=== PATIENT | male | born 1975 | race Caucasian/White ===

== ENCOUNTER 2017-12-19 09:58 | Inpatient (IN) | payer MEDICAID ==
--- NOTE | 2017-12-19 10:34 | CR ---
EXAMINATION: Two-view chest (PA and Lateral views). HISTORY: Shortness of breath. Comparison: 12/18/2017 FINDINGS: The trachea is midline. The cardiomediastinal silhouette is within normal limits. There is a left-ramon ed pneumothorax measuring 2.9 cm at the apex, not significantly changed from the recent radiograph. M ild left basilar atelectasis. No pleural effusion. Osseous structures appear unremarkable. IMPRESSION: 1. Stable small to moderate left pneumothorax.
[2017-12-19] MEDS ORDERED: Sodium Chloride 0.9% 2.5 ML Syringe FLUSH PRN (10:39)
[2017-12-19] MEDS ORDERED: Sodium Chloride 0.9% 10 ML Syringe FLUSH PRN (10:39)
[2017-12-19] MEDS ORDERED: Lidocaine 1% 20 ML MDV INJECT ONE (10:45)
--- NOTE | 2017-12-19 10:56 | EDM.PDOC ---
ED HPI GENERAL MEDICAL PROBLEM - General Chief Complaint: Respiratory Problem Stated Complaint: COLLASPED LUNG PER MD SOTO Time Seen by Provider: 12/19/17 10:24 Source of Information: Reports: Patient, Family () - History of Present Illness INITIAL COMMENTS - FREE TEXT/NARRATIVE: Presents reporting a pneumothorax. The patient states he does not ever seek medical care. He was seen in the urgent care for his gout a month ago. He also reported some SOB with activity so they did a chest X-ray which indicated a 25% pneumo. He was told to FU but he did not. Then yesterday, his went in to primary care and while she was there, urged her to be seen to FU with the pneumo. Dr. Soto did a CXR which indicated explanding pneumo from his previous x-ray in mid October and told him to report to the ER this morning. He had a spontaneous pneumothorax on the right when he was 15 years old. It was treated with a chest tube without interval recurrence per the patient. The patient states that he is always a little short of breath when going up stairs or exerting himself but otherwise denies any symptoms. He states that he has some mild pain from his scapula down to his belt line on the left in the back that increases with movement and laying on his left side but otherwise he denies any pain. Left Chest Pain Score (Numeric/FACES): 4 - Related Data Allergies Allergy/AdvReac Type Severity Reaction Status Date / Time No Known Allergies Allergy Verified 12/19/17 10:13 Home Meds: Home Meds . [No Known Home Meds] 12/19/17 [History] Past Medical History Respiratory History: Reports: Pneumothorax Musculoskeletal History: Reports: Gout - Infectious Disease History Infectious Disease History: Reports: Chicken Pox Social & Family History - Family History Family Medical History: Noncontributory - Tobacco Use Smoking Status *Q: Never Smoker - Recreational Drug Use Recreational Drug Use: No ED ROS GENERAL - Review of Systems Review Of Systems: See Below Constitutional: Reports: No Symptoms. Denies: Fever HEENT: Reports: No Symptoms Respiratory: Denies: Shortness of Breath, Wheezing, Cough Cardiovascular: Reports: No Symptoms. Denies: Chest Pain GI/Abdominal: Reports: No Symptoms Musculoskeletal: Reports: Other (Mild pain and tenderness left upper shoulder blade to belt-line left back) Neurological: Reports: No Symptoms Psychiatric: Reports: No Symptoms ED EXAM, GENERAL - Physical Exam Exam: See Below Exam Limited By: No Limitations General Appearance: Alert, No Apparent Distress Ears: Normal External Exam Nose: Normal Inspection Throat/Mouth: Normal Inspection Head: Atraumatic, Normocephalic Neck: Normal Inspection Respiratory/Chest: No Respiratory Distress, Lungs Clear, Decreased Breath Sounds (No breath sounds mid and lower on the left) Cardiovascular: Normal Peripheral Pulses, Regular Rate, Rhythm, No Edema GI/Abdominal: Soft Back Exam: Normal Inspection, Other (Mild tenderness over upper scapula) Neurological: Alert, Oriented, Normal Cognition Psychiatric: Normal Affect, Normal Mood Skin Exam: Warm, Dry, Intact, Normal Color, No Rash Lymphatic: No Adenopathy ED RESPIRATORY PROCEDURES - Chest Tube Insertion Tube Size: 24Fr Skin Prep: Betadine Local Anesthesia - Lidocaine (Xylocaine): 1% with EPI (25cc) Local Anesthetic Volume: Other (25) Cabrera of Air Bartholomew: Yes Number of Attempts: 1 Tube Sutured to Skin: Yes Post procedure tube position confirmed by: by CXR, by Provider (Dr. Webster) Tube Connected to Suction: Yes Course - Vital Signs Last Recorded V/S: Last Vital Signs Temp 36.3 C 12/19/17 10:09 Pulse 79 12/19/17 12:12 Resp 13 12/19/17 12:12 BP 145/91 H 12/19/17 12:12 Pulse Ox 96 12/19/17 12:12 - Orders/Labs/Meds Orders: Active Orders 24 hr Category Date Time Status Admission Status [Patient Status] [ADT] Stat ADT 12/19/17 12:23 Active HYDROmorphone [Dilaudid] Med 12/19/17 12:38 Once 1 mg IVPUSH ONETIME ONE Sodium Chloride 0.9% [Saline Flush] Med 12/19/17 10:39 Ordered 10 ml FLUSH ASDIRECTED PRN Sodium Chloride 0.9% [Saline Flush] Med 12/19/17 10:39 Ordered 2.5 ml FLUSH ASDIRECTED PRN Saline Lock Insert [OM.PC] Stat Oth 12/19/17 10:39 Ordered Medication Orders Hydromorphone HCl (Dilaudid) 1 mg IVPUSH ONETIME ONE Stop: 12/19/17 12:39 Sodium Chloride (Saline Flush) 10 ml FLUSH ASDIRECTED PRN PRN Reason: Keep Vein Open Last Admin: 12/19/17 10:55 Dose: 10 ml Sodium Chloride (Saline Flush) 2.5 ml FLUSH ASDIRECTED PRN PRN Reason: Keep Vein Open Last Admin: 12/19/17 10:55 Dose: 2.5 ml Labs: Laboratory Tests 12/19/17 12/19/17 12/19/17 Range/Units 10:41 10:41 10:41 WBC 6.80 (4.0-11.0) K/uL RBC 4.99 (4.50-5.90) M/uL Hgb 16.3 (13.0-17.0) g/dL Hct 46.6 (38.0-50.0) % MCV 93.4 (80.0-98.0) fL MCH 32.7 H (27.0-32.0) pg MCHC 35.0 (31.0-37.0) g/dL RDW Std Deviation 43.2 (28.0-62.0) fl RDW Coeff of Panda 13 (11.0-15.0) % Plt Count 175 (150-400) K/uL MPV 11.20 (7.40-12.00) fL Neut % (Auto) 63.7 (48.0-80.0) % Lymph % (Auto) 25.1 (16.0-40.0) % [place] % (Auto) 9.9 (0.0-15.0) % Eos % (Auto) 1.2 (0.0-7.0) % Baso % (Auto) 0.1 (0.0-1.5) % Neut # (Auto) 4.3 (1.4-5.7) K/uL Lymph # (Auto) 1.7 (0.6-2.4) K/uL [place] # (Auto) 0.7 (0.0-0.8) K/uL Eos # (Auto) 0.1 (0.0-0.7) K/uL Baso # (Auto) 0.0 (0.0-0.1) K/uL Nucleated RBC % 0.0 /100WBC Nucleated RBCs # 0 K/uL INR 0.99 Sodium 140 (136-146) mmol/L Potassium 4.4 (3.5-5.1) mmol/L Chloride 108 (98-110) mmol/L Carbon Dioxide 24 (21-31) mmol/L BUN 16 (6.0-23.0) mg/dL Creatinine 1.1 (0.6-1.5) mg/dL Est Cr Clr Drug Dosing 95.04 mL/min Estimated GFR (MDRD) > 60.0 ml/min Glucose 87 (60-110) mg/dL Calcium 9.7 (8.8-10.8) mg/dL Total Bilirubin 0.6 (0.1-1.5) mg/dL AST 16 (5-40) IU/L ALT 22 (8-54) IU/L Alkaline Phosphatase 61 (40-150) Total Protein 7.5 (6.0-8.0) g/dL Albumin 4.4 (3.5-5.0) g/dL Globulin 3.1 (2.0-3.5) g/dL Albumin/Globulin Ratio 1.4 (1.3-2.8) Meds: Medications Generic Name Dose Route Start Last Admin Trade Name Freq PRN Reason Stop Dose Admin Hydromorphone HCl 1 mg 12/19/17 12:38 Dilaudid IVPUSH 12/19/17 12:39 ONETIME ONE Sodium Chloride 10 ml 12/19/17 10:39 12/19/17 10:55 Saline Flush FLUSH 10 ml ASDIRECTED PRN Administration Keep Vein Open Sodium Chloride 2.5 ml 12/19/17 10:39 12/19/17 10:55 Saline Flush FLUSH 2.5 ml ASDIRECTED PRN Administration Keep Vein Open Discontinued Medications Generic Name Dose Route Start Last Admin Trade Name Freq PRN Reason Stop Dose Admin Lidocaine HCl 20 ml 12/19/17 10:45 12/19/17 11:19 Xylocaine 1% INJECT 12/19/17 10:46 Not Given ONETIME ONE Lidocaine/Epinephrine 20 ml 12/19/17 11:10 12/19/17 11:19 Xylocaine 1% With Epinephrine 1:100,000 INJECT 12/19/17 11:11 20 ml ONETIME ONE Administration Midazolam HCl 2 mg 12/19/17 11:18 12/19/17 11:21 Versed 1 Mg/Ml IVPUSH 12/19/17 11:19 2 mg ONETIME ONE Administration Midazolam HCl Confirm 02/27/18 11:19 Versed 1 Mg/Ml Administered 12/19/17 11:20 Dose 2 mg .ROUTE .STK-MED ONE Morphine Sulfate 10 mg 12/19/17 11:11 12/19/17 11:16 Morphine IVPUSH 12/19/17 11:12 10 mg ONETIME ONE Administration Departure - Departure Time of Disposition: 12:47 Disposition: Admitted As Inpatient 65 Condition: Good Clinical Impression: Pneumothorax Qualifiers: Pneumothorax type: spontaneous, primary Qualified Code(s): J93.11 - Primary spontaneous pneumothorax - Discharge Information Referrals: Ant Soto MD [Primary Care Provider] - - My Orders Last 24 Hours: My Active Orders 12/19/17 10:39 Sodium Chloride 0.9% [Saline Flush] 10 ml FLUSH ASDIRECTED PRN Sodium Chloride 0.9% [Saline Flush] 2.5 ml FLUSH ASDIRECTED PRN Saline Lock Insert [OM.PC] Stat 12/19/17 12:38 HYDROmorphone [Dilaudid] 1 mg IVPUSH ONETIME ONE - Assessment/Plan Last 24 Hours: My Active Orders 12/19/17 10:39 Sodium Chloride 0.9% [Saline Flush] 10 ml FLUSH ASDIRECTED PRN Sodium Chloride 0.9% [Saline Flush] 2.5 ml FLUSH ASDIRECTED PRN Saline Lock Insert [OM.PC] Stat 12/19/17 12:38 HYDROmorphone [Dilaudid] 1 mg IVPUSH ONETIME ONE
[2017-12-19] MEDS ORDERED: Lidocaine 1% with EPINEPHrine 1:100,000 20 ML MDV INJECT ONE (11:10)
[2017-12-19] MEDS ORDERED: Morphine 10 MG/ML Syringe IVPUSH ONE (11:11)
[2017-12-19 11:15] LABS: CHLORIDE,CL 108 mmol/L (98-110); SODIUM,NA 140 mmol/L (136-146)
[2017-12-19] MEDS ORDERED: Midazolam 1 MG/ML 2 ML SDV IVPUSH ONE ×2 (11:18→16:01)
[2017-12-19] MEDS ORDERED: Morphine 2 MG/ML Syringe IVPUSH ONE ×9 (11:22→15:57)
--- NOTE | 2017-12-19 12:33 | CR ---
EXAMINATION: Portable chest radiograph. HISTORY: Post chest tube placement. FINDINGS: The trachea is midline. The cardiomediastinal silhouette is within normal limits. No pulmonary infilt rates, effusions or pneumothorax. Left-sided chest tube is noted. Osseous structures appear unremarkable. IMPRESSION: Left-sided chest tube is noted without a visualized pneumothorax.
[2017-12-19] MEDS ORDERED: HYDROmorphone 2 MG/ML Syringe IVPUSH ONE (12:38)
[2017-12-19] MEDS ORDERED: HYDROmorphone 1 MG/ML Syringe IVPUSH ONE (12:45)
[2017-12-19] MEDS: Midazolam 1 MG/ML 2 ML SDV ONE ×2 (12:47→16:03)
[2017-12-19] MEDS: Morphine 4 MG/ML Syringe IVPUSH ONE ×2 (14:16→15:04)
[2017-12-19] MEDS: Morphine 2 MG/ML Syringe IVPUSH ONE ×12 (14:17→15:05)
[2017-12-19] MEDS ORDERED: Morphine 2 MG/ML Syringe IVPUSH PRN (14:22)
[2017-12-19] MEDS: Midazolam 1 MG/ML 2 ML SDV IVPUSH ONE ×2 (14:31→15:05)
[2017-12-19] MEDS: Acetaminophen/oxyCODONE 325-5 MG Tab PO PRN ×2 (15:22→21:01)
[2017-12-19] MEDS: Docusate Sodium 100 MG Cap PO PRN (15:23)
[2017-12-19] MEDS: ceFAZolin 1 GM in Premix Bag 1 BAG IV SCH ×2 (15:30→23:17)
[2017-12-19] MEDS: Lactated Ringers 1,000 ML IV SCH (15:37)
[2017-12-19] MEDS ORDERED: Morphine 4 MG/ML Syringe IVPUSH ONE (15:56)
[2017-12-19] MEDS: Ondansetron 4 MG/2 ML SDV IVPUSH PRN (19:44)
--- NOTE | 2017-12-19 22:57 | PCM.OPNOTE ---
- General Post-Op/Procedure Note Date of Surgery/Procedure: 12/19/17 Operative Procedure(s): chest tube insertion L Findings: post tube placement, cxr, no ptx; [id number] Pre Op Diagnosis: instantaneous L ptx Post-Op Diagnosis: Same Anesthesia Technique: Moderate Sedation Primary Surgeon: Mario Webster Complications: None Condition: Stable Free Text/Narrative:: Intake & Output 12/19/17 12/19/17 12/19/17 06:59 14:59 22:59 Intake Total 250 Balance 250
--- NOTE | 2017-12-19 23:00 | PCM.SN ---
- Free Text/Narrative Note: h/p [id number]
[2017-12-20] MEDS: Lactated Ringers 1,000 ML IV SCH ×3 (00:42→19:38)
--- NOTE | 2017-12-20 03:14 | OR ---
SURGEON: Mario Webster MD DATE OF PROCEDURE: 12/19/2017 PREOPERATIVE DIAGNOSIS: Instantaneous left pneumothorax. POSTOPERATIVE DIAGNOSIS: Instantaneous left pneumothorax. PROCEDURE PERFORMED: Chest tube placement. COMPLICATIONS: None. FINDING: A 50% pneumothorax on the left. 28F chest tube placement to L. Post procedure Chest x-ray, no pneumothorax. PROCEDURE IN DETAIL: In the Emergency Room Tra[facility] [place] and after informed consent was signed, time-out was being called, patient identified procedure identified, procedure then started. Chest x-ray shows the patient has 50% pneumothorax on the left chest and 28-German chest tube was then placed. The patient was put on to right decubitus position with the left arm raised on the side rail and the L chest area was prepped and draped in a sterile fashion, and insertion site has to be above the nipple line and local anesthetic was then infiltrated, and using a skin scalpel, a skin incision was made and followed with insertion of a 28- German chest tube. Upon gaining entrance in the pleural cavity, a gush w loud sound exit out consistent with tension pneumothorax and the chest tube was also stymified. The chest tube was then anchored to the skin by use of 2-0 silk and followed by appropriate dressing, and post chest tube placement, chest x-ray showed no pneumothorax and chest tube does not have any air leak. The patient tolerated the procedure well. As always, thank you for your kind referral. TREVOR TRACY /[id number] KALLI
[2017-12-20] MEDS: Acetaminophen/oxyCODONE 325-5 MG Tab PO PRN ×2 (03:34→16:25)
[2017-12-20] MEDS: ceFAZolin 1 GM in Premix Bag 1 BAG IV SCH ×3 (06:13→22:06)
[2017-12-20] MEDS: HYDROmorphone 1 MG/ML Syringe IVPUSH PRN ×3 (06:19→19:45)
[2017-12-20] MEDS: Ondansetron 4 MG/2 ML SDV IVPUSH PRN ×2 (07:58→16:26)
--- NOTE | 2017-12-20 09:18 | HP ---
DATE OF : 1975 PRIMARY CARE PHYSICIAN: Ant Soto CONSULT NOTE/ADMITTING HISTORY AND PHYSICAL Consult from ALLYSON Chin, from the ED. CONSULTING QUESTION: Instantaneous left-sided pneumothorax. HISTORY OF PRESENT ILLNESS: The patient is a 42-year-old gentleman with complaints of difficult to breathe in the last several days. He came to the emergency room and found to have a 50% pneumothorax. Surgery was then consulted. Currently, the patient denied chest pain, but remarked to have shortness of breath. Chest x-ray shows the patient had a 50% pneumothorax on the left, and Surgery was then consulted. PAST MEDICAL HISTORY: Significant for no diabetes or [place]. SOCIAL HISTORY: Denies alcohol use. Denies smoking. Denies chewing tobacco. PAST SURGICAL HISTORY: The patient has a chest tube placed on the right side at age 15. ALLERGIES: Please refer nursing for details. MEDICATIONS: Please refer nursing for details. FAMILY HISTORY: Noncontributory. REVIEW OF SYSTEMS: Same as history of present illness. PHYSICAL EXAMINATION: GENERAL: Very pleasant, nice gentleman, smiled to the doctor, in no acute distress. HEENT: Normocephalic and atraumatic. No cutaneous crepitus. NECK: Trachea is midline. LUNGS: Decreased breath sounds on the left side. ABDOMEN: Soft. Nondistended. LABORATORY DATA: Chest x-ray shows left side pneumothorax 50%. IMPRESSION: Left-sided instantaneous pneumothorax. Would benefit from chest tube placement. Risks and benefits discussed with the patient including bleeding, infection, and postop pain management. The patient concurred to proceed as planned. As always, thank you for the kind referral. TREVOR / ROSSANA /[id number]
[2017-12-20] MEDS: Diazepam 2 MG Tab PO PRN ×2 (09:55→22:06)
--- NOTE | 2017-12-20 10:06 | PCM.SURGPN ---
- General Info Date of Service: 12/20/17 POD#: 1 Post-Op Diagnosis: L ptx Functional Status: Reports: Pain Controlled - Review of Systems General: Reports: No Symptoms Cardiovascular: Reports: No Symptoms Gastrointestinal: Reports: No Symptoms - Patient Data Vitals - Most Recent: Last Vital Signs Temp 96.8 F 12/20/17 08:00 Pulse 60 12/20/17 08:00 Resp 16 12/20/17 08:00 BP 136/92 H 12/20/17 08:00 Pulse Ox 98 12/20/17 03:59 Weight - Most Recent: 539 lb 7.538 oz I&O - Last 24 Hours: Intake & Output 12/19/17 12/20/17 12/20/17 22:59 06:59 14:59 Intake Total 250 2100 Output Total 1780 Balance 250 320 Med Orders - Current: Current Medications Diazepam (Valium) 1 mg PO Q12H PRN PRN Reason: Muscle Spasm Last Admin: 12/20/17 09:55 Dose: 1 mg Docusate Sodium (Colace) 100 mg PO DAILY PRN PRN Reason: Constipation Last Admin: 12/19/17 15:23 Dose: 100 mg Hydromorphone HCl (Dilaudid) 1 mg IVPUSH Q6H PRN PRN Reason: Pain Last Admin: 12/20/17 06:19 Dose: 1 mg Lactated Ringer's (Ringers, Lactated) 1,000 mls @ 125 mls/hr IV ASDIRECTED [facility] Last Admin: 12/20/17 00:42 Dose: 125 mls/hr Cefazolin Sodium/Dextrose 1 gm (/ Premix) 50 mls @ 100 mls/hr IV Q8H [facility] Last Infusion: 12/20/17 06:45 Dose: Infused Ondansetron HCl (Zofran) 4 mg IVPUSH Q8H PRN PRN Reason: Nausea/Vomiting Last Admin: 12/20/17 07:58 Dose: 4 mg Oxycodone/Acetaminophen (Percocet 325-5 Mg) 1 tab PO Q6H PRN PRN Reason: Pain (moderate 4-6) Last Admin: 12/20/17 03:34 Dose: 1 tab Sodium Chloride (Saline Flush) 10 ml FLUSH ASDIRECTED PRN PRN Reason: Keep Vein Open Last Admin: 12/19/17 10:55 Dose: 10 ml Sodium Chloride (Saline Flush) 2.5 ml FLUSH ASDIRECTED PRN PRN Reason: Keep Vein Open Last Admin: 12/19/17 10:55 Dose: 2.5 ml Discontinued Medications Hydromorphone HCl (Dilaudid) 1 mg IVPUSH ONETIME ONE Stop: 12/19/17 12:39 Last Admin: 12/19/17 12:46 Dose: Not Given Hydromorphone HCl (Dilaudid) 1 mg IVPUSH ONETIME ONE Stop: 12/19/17 12:46 Last Admin: 12/19/17 12:45 Dose: 1 mg Lidocaine HCl (Xylocaine 1%) 20 ml INJECT ONETIME ONE Stop: 12/19/17 10:46 Last Admin: 12/19/17 11:19 Dose: Not Given Lidocaine/Epinephrine (Xylocaine 1% With Epinephrine 1:100,000) 20 ml INJECT ONETIME ONE Stop: 12/19/17 11:11 Last Admin: 12/19/17 11:19 Dose: 20 ml Midazolam HCl (Versed 1 Mg/Ml) 2 mg IVPUSH ONETIME ONE Stop: 12/19/17 11:19 Last Admin: 12/19/17 11:21 Dose: 2 mg Midazolam HCl (Versed 1 Mg/Ml) Confirm Administered Dose 2 mg .ROUTE .STK-MED ONE Stop: 12/19/17 11:20 Last Admin: 12/19/17 16:03 Dose: Not Given Midazolam HCl (Versed 1 Mg/Ml) 2 mg IVPUSH ONETIME ONE Stop: 12/19/17 16:02 Last Admin: 12/19/17 16:02 Dose: 2 mg Morphine Sulfate (Morphine) 10 mg IVPUSH ONETIME ONE Stop: 12/19/17 11:12 Last Admin: 12/19/17 11:16 Dose: 10 mg Morphine Sulfate (Morphine) 2 mg IVPUSH Q6H PRN PRN Reason: Pain Last Admin: 12/19/17 18:29 Dose: 2 mg Morphine Sulfate (Morphine) 4 mg IVPUSH ONETIME ONE Stop: 12/19/17 15:57 Last Admin: 12/19/17 16:03 Dose: 4 mg Morphine Sulfate (Morphine) 1 mg IVPUSH ONETIME ONE Stop: 12/19/17 11:23 Last Admin: 12/19/17 16:04 Dose: 1 mg Morphine Sulfate (Morphine) 1 mg IVPUSH ONETIME ONE Stop: 12/19/17 15:58 Last Admin: 12/19/17 17:01 Dose: Not Given Morphine Sulfate (Morphine) 1 mg IVPUSH ONETIME ONE Stop: 12/19/17 11:27 Last Admin: 12/19/17 17:01 Dose: Not Given Morphine Sulfate (Morphine) 1 mg IVPUSH ONETIME ONE Stop: 12/19/17 11:33 Last Admin: 12/19/17 17:01 Dose: Not Given Morphine Sulfate (Morphine) 1 mg IVPUSH ONETIME ONE Stop: 12/19/17 11:41 Last Admin: 12/19/17 17:01 Dose: Not Given Morphine Sulfate (Morphine) 1 mg IVPUSH ONETIME ONE Stop: 12/19/17 11:26 Last Admin: 12/19/17 11:26 Dose: 1 mg Morphine Sulfate (Morphine) 1 mg IVPUSH ONETIME ONE Stop: 12/19/17 11:33 Last Admin: 12/19/17 11:33 Dose: 1 mg Morphine Sulfate (Morphine) 1 mg IVPUSH ONETIME ONE Stop: 12/19/17 11:41 Last Admin: 12/19/17 11:41 Dose: 1 mg Morphine Sulfate (Morphine) 1 mg IVPUSH ONETIME ONE Stop: 12/19/17 11:27 Last Admin: 12/19/17 11:27 Dose: 1 mg - Exam General: Alert, Oriented Lungs: Clear to Auscultation, Normal Respiratory Effort (no cutaneous crepitus, trachea ML; ct no air leak) - Problem List Review Problem List Initiated/Reviewed/Updated: Yes - My Orders Last 24 Hours: Active Orders 24 hr Category Date Time Status Chest Tube Management [RC] Q4H Care 12/19/17 14:38 Active Regular Diet [DIET] Diet 12/19/17 Lunch Active Chest 1V Frontal [CR] DAILY Exams 12/20/17 07:00 Ordered Chest 1V Frontal [CR] DAILY Exams 12/21/17 07:00 Taken Chest 1V Frontal [CR] DAILY Exams 12/22/17 07:00 Ordered Chest 1V Frontal [CR] Routine Exams 12/19/17 22:00 Taken Acetaminophen/oxyCODONE [Percocet 325-5 MG] Med 12/19/17 14:24 Active 1 tab PO Q6H PRN Diazepam [Valium] Med 12/20/17 09:12 Active 1 mg PO Q12H PRN Docusate Sodium [Colace] Med 12/19/17 14:27 Active 100 mg PO DAILY PRN HYDROmorphone [Dilaudid] Med 12/19/17 21:55 Active 1 mg IVPUSH Q6H PRN Lactated Ringers [Ringers, Lactated] 1,000 ml Med 12/19/17 14:00 Active IV ASDIRECTED Ondansetron [Zofran] Med 12/19/17 18:37 Active 4 mg IVPUSH Q8H PRN ceFAZolin [Ancef] 1 gm Med 12/19/17 14:30 Active Premix Bag 1 bag IV Q8H Medication Orders Diazepam (Valium) 1 mg PO Q12H PRN PRN Reason: Muscle Spasm Last Admin: 12/20/17 09:55 Dose: 1 mg Docusate Sodium (Colace) 100 mg PO DAILY PRN PRN Reason: Constipation Last Admin: 12/19/17 15:23 Dose: 100 mg Hydromorphone HCl (Dilaudid) 1 mg IVPUSH Q6H PRN PRN Reason: Pain Last Admin: 12/20/17 06:19 Dose: 1 mg Lactated Ringer's (Ringers, Lactated) 1,000 mls @ 125 mls/hr IV ASDIRECTED [facility] Last Admin: 12/20/17 00:42 Dose: 125 mls/hr Infusion: 12/19/17 23:37 Dose: 125 mls/hr Admin: 12/19/17 15:37 Dose: 125 mls/hr Cefazolin Sodium/Dextrose 1 gm (/ Premix) 50 mls @ 100 mls/hr IV Q8H [facility] Last Infusion: 12/20/17 06:45 Dose: 100 mls/hr Admin: 12/20/17 06:13 Dose: 100 mls/hr Infusion: 12/19/17 23:50 Dose: 100 mls/hr Admin: 12/19/17 23:17 Dose: 100 mls/hr Infusion: 12/19/17 16:00 Dose: 100 mls/hr Admin: 12/19/17 15:30 Dose: 100 mls/hr Ondansetron HCl (Zofran) 4 mg IVPUSH Q8H PRN PRN Reason: Nausea/Vomiting Last Admin: 12/20/17 07:58 Dose: 4 mg Admin: 12/19/17 19:44 Dose: 4 mg Oxycodone/Acetaminophen (Percocet 325-5 Mg) 1 tab PO Q6H PRN PRN Reason: Pain (moderate 4-6) Last Admin: 12/20/17 03:34 Dose: 1 tab Admin: 12/19/17 21:01 Dose: 1 tab Admin: 12/19/17 15:22 Dose: 1 tab Sodium Chloride (Saline Flush) 10 ml FLUSH ASDIRECTED PRN PRN Reason: Keep Vein Open Last Admin: 12/19/17 10:55 Dose: 10 ml Sodium Chloride (Saline Flush) 2.5 ml FLUSH ASDIRECTED PRN PRN Reason: Keep Vein Open Last Admin: 12/19/17 10:55 Dose: 2.5 ml - Assessment Assessment (Free Text/Narrative):: doing well, small apical ptx persisted; chest ct w contrast tomorrow - Plan Plan (Free Text/Narrative):: doing well, small apical ptx persisted; chest ct w contrast tomorrow
--- NOTE | 2017-12-20 10:16 | CR ---
EXAM DATE: 12/19/17 PATIENT'S AGE: 42 Patient: CARLOZ CARRASQUILLO Facility: [place], [place] Site . Site : 1975 Study: XRay Chest [id number]/[id number] 10:04:56 PM Ordering Physician: Eleanor Martin Final Report: INDICATION: Pneumothorax TECHNIQUE: Chest radiograph 1 view COMPARISON: 12/19/2017 FINDINGS: Mediastinum: The heart silhouette is normal in size and morphology. The mediastinum is normal in appearance. Left basilar chest tube is unchanged. Lungs: Trace left apical pneumothorax is noted. Mild bibasilar atelectasis seen. No sign of pleural effusion seen. Bones and soft tissue: old fracture deformity of the right clavicle noted. IMPRESSION: 1. Trace left apical pneumothorax is noted. Dictated by Lee Celis MD @ 12/19/2017 10:21:47 PM Dictated by: Lee Celis MD @ 12/19/2017 22:21:51 (Electronic Signature) Report Signed by Proxy. KALLI
--- NOTE | 2017-12-20 13:56 | CR ---
EXAMINATION: Portable chest radiograph. HISTORY: Pneumothorax. FINDINGS: The trachea is midline. The cardiomediastinal silhouette is within normal limits. There is bibasilar atelectasis. Left-sided chest tube is noted with a tiny left apical pneumothorax measuring 3 mm. Osseous structures appear unremarkable. IMPRESSION: Left-sided chest tube in place with a tiny 3 mm residual left-sided pneumothorax, likely not signific antly changed.
[2017-12-20] MEDS ORDERED: HYDROmorphone 1 MG/ML Syringe IVPUSH PRN (22:17)
[2017-12-21] MEDS: Acetaminophen/oxyCODONE 325-5 MG Tab PO PRN ×3 (01:45→18:39)
[2017-12-21] MEDS: Lactated Ringers 1,000 ML IV SCH ×3 (04:13→21:43)
[2017-12-21] MEDS: ceFAZolin 1 GM in Premix Bag 1 BAG IV SCH ×3 (06:48→21:59)
[2017-12-21] MEDS ORDERED: Iopamidol 755 MG/ML 500 ML Multipack Bottle IVPUSH STA (09:24)
--- NOTE | 2017-12-21 10:16 | PCM.SURGPN ---
- General Info Date of Service: 12/21/17 - Review of Systems General: Reports: No Symptoms (pain much better controlled, denied any breathing symptoms; chest tube, no air leak) - Patient Data Vitals - Most Recent: Last Vital Signs Temp 97.1 F 12/21/17 08:01 Pulse 60 12/21/17 08:01 Resp 18 12/21/17 08:01 BP 133/85 12/21/17 08:01 Pulse Ox 96 12/21/17 08:01 Weight - Most Recent: 539 lb 7.538 oz I&O - Last 24 Hours: Intake & Output 12/20/17 12/21/17 12/21/17 22:59 06:59 14:59 Intake Total 1300 1950 Output Total 1770 2370 Balance -470 -420 Med Orders - Current: Current Medications Diazepam (Valium) 1 mg PO Q12H PRN PRN Reason: Muscle Spasm Last Admin: 12/20/17 22:06 Dose: 1 mg Docusate Sodium (Colace) 100 mg PO DAILY PRN PRN Reason: Constipation Last Admin: 12/19/17 15:23 Dose: 100 mg Hydromorphone HCl (Dilaudid) 1 mg IVPUSH Q8H PRN PRN Reason: Pain Lactated Ringer's (Ringers, Lactated) 1,000 mls @ 125 mls/hr IV ASDIRECTED [facility] Last Admin: 12/21/17 04:13 Dose: 125 mls/hr Cefazolin Sodium/Dextrose 1 gm (/ Premix) 50 mls @ 100 mls/hr IV Q8H [facility] Last Admin: 12/21/17 06:48 Dose: 100 mls/hr Ondansetron HCl (Zofran) 4 mg IVPUSH Q8H PRN PRN Reason: Nausea/Vomiting Last Admin: 12/20/17 16:26 Dose: 4 mg Oxycodone/Acetaminophen (Percocet 325-5 Mg) 1 tab PO Q6H PRN PRN Reason: Pain (moderate 4-6) Last Admin: 12/21/17 09:01 Dose: 1 tab Sodium Chloride (Saline Flush) 10 ml FLUSH ASDIRECTED PRN PRN Reason: Keep Vein Open Last Admin: 12/19/17 10:55 Dose: 10 ml Sodium Chloride (Saline Flush) 2.5 ml FLUSH ASDIRECTED PRN PRN Reason: Keep Vein Open Last Admin: 12/19/17 10:55 Dose: 2.5 ml Discontinued Medications Hydromorphone HCl (Dilaudid) 1 mg IVPUSH ONETIME ONE Stop: 12/19/17 12:39 Last Admin: 12/19/17 12:46 Dose: Not Given Hydromorphone HCl (Dilaudid) 1 mg IVPUSH ONETIME ONE Stop: 12/19/17 12:46 Last Admin: 12/19/17 12:45 Dose: 1 mg Hydromorphone HCl (Dilaudid) 1 mg IVPUSH Q6H PRN PRN Reason: Pain Last Admin: 12/20/17 19:45 Dose: 1 mg Iopamidol (Isovue Multipack-370 (76%)) 75 ml IVPUSH ONETIME STA Stop: 12/21/17 09:25 Last Admin: 12/21/17 09:25 Dose: 75 ml Lidocaine HCl (Xylocaine 1%) 20 ml INJECT ONETIME ONE Stop: 12/19/17 10:46 Last Admin: 12/19/17 11:19 Dose: Not Given Lidocaine/Epinephrine (Xylocaine 1% With Epinephrine 1:100,000) 20 ml INJECT ONETIME ONE Stop: 12/19/17 11:11 Last Admin: 12/19/17 11:19 Dose: 20 ml Midazolam HCl (Versed 1 Mg/Ml) 2 mg IVPUSH ONETIME ONE Stop: 12/19/17 11:19 Last Admin: 12/19/17 11:21 Dose: 2 mg Midazolam HCl (Versed 1 Mg/Ml) Confirm Administered Dose 2 mg .ROUTE .STK-MED ONE Stop: 12/19/17 11:20 Last Admin: 12/19/17 16:03 Dose: Not Given Midazolam HCl (Versed 1 Mg/Ml) 2 mg IVPUSH ONETIME ONE Stop: 12/19/17 16:02 Last Admin: 12/19/17 16:02 Dose: 2 mg Morphine Sulfate (Morphine) 10 mg IVPUSH ONETIME ONE Stop: 12/19/17 11:12 Last Admin: 12/19/17 11:16 Dose: 10 mg Morphine Sulfate (Morphine) 2 mg IVPUSH Q6H PRN PRN Reason: Pain Last Admin: 12/19/17 18:29 Dose: 2 mg Morphine Sulfate (Morphine) 4 mg IVPUSH ONETIME ONE Stop: 12/19/17 15:57 Last Admin: 12/19/17 16:03 Dose: 4 mg Morphine Sulfate (Morphine) 1 mg IVPUSH ONETIME ONE Stop: 12/19/17 11:23 Last Admin: 12/19/17 16:04 Dose: 1 mg Morphine Sulfate (Morphine) 1 mg IVPUSH ONETIME ONE Stop: 12/19/17 15:58 Last Admin: 12/19/17 17:01 Dose: Not Given Morphine Sulfate (Morphine) 1 mg IVPUSH ONETIME ONE Stop: 12/19/17 11:27 Last Admin: 12/19/17 17:01 Dose: Not Given Morphine Sulfate (Morphine) 1 mg IVPUSH ONETIME ONE Stop: 12/19/17 11:33 Last Admin: 12/19/17 17:01 Dose: Not Given Morphine Sulfate (Morphine) 1 mg IVPUSH ONETIME ONE Stop: 12/19/17 11:41 Last Admin: 12/19/17 17:01 Dose: Not Given Morphine Sulfate (Morphine) 1 mg IVPUSH ONETIME ONE Stop: 12/19/17 11:26 Last Admin: 12/19/17 11:26 Dose: 1 mg Morphine Sulfate (Morphine) 1 mg IVPUSH ONETIME ONE Stop: 12/19/17 11:33 Last Admin: 12/19/17 11:33 Dose: 1 mg Morphine Sulfate (Morphine) 1 mg IVPUSH ONETIME ONE Stop: 12/19/17 11:41 Last Admin: 12/19/17 11:41 Dose: 1 mg Morphine Sulfate (Morphine) 1 mg IVPUSH ONETIME ONE Stop: 12/19/17 11:27 Last Admin: 12/19/17 11:27 Dose: 1 mg - Exam Lungs: Clear to Auscultation (B breasthing sound), Normal Respiratory Effort - Problem List Review Problem List Initiated/Reviewed/Updated: Yes - My Orders Last 24 Hours: Active Orders 24 hr Category Date Time Status Chest 1V Frontal [CR] DAILY Exams 12/22/17 07:00 Stop Req Chest w Cont [CT] Routine Exams 12/21/17 10:06 Taken HYDROmorphone [Dilaudid] Med 12/20/17 22:17 Active 1 mg IVPUSH Q8H PRN Medication Orders Diazepam (Valium) 1 mg PO Q12H PRN PRN Reason: Muscle Spasm Last Admin: 12/20/17 22:06 Dose: 1 mg Admin: 12/20/17 09:55 Dose: 1 mg Docusate Sodium (Colace) 100 mg PO DAILY PRN PRN Reason: Constipation Last Admin: 12/19/17 15:23 Dose: 100 mg Hydromorphone HCl (Dilaudid) 1 mg IVPUSH Q8H PRN PRN Reason: Pain Lactated Ringer's (Ringers, Lactated) 1,000 mls @ 125 mls/hr IV ASDIRECTED [facility] Last Admin: 12/21/17 04:13 Dose: 125 mls/hr Infusion: 12/21/17 03:38 Dose: 125 mls/hr Admin: 12/20/17 19:38 Dose: 125 mls/hr Infusion: 12/20/17 17:15 Dose: 125 mls/hr Admin: 12/20/17 09:15 Dose: 125 mls/hr Infusion: 12/20/17 08:42 Dose: 125 mls/hr Admin: 12/20/17 00:42 Dose: 125 mls/hr Infusion: 12/19/17 23:37 Dose: 125 mls/hr Admin: 12/19/17 15:37 Dose: 125 mls/hr Cefazolin Sodium/Dextrose 1 gm (/ Premix) 50 mls @ 100 mls/hr IV Q8H [facility] Last Admin: 12/21/17 06:48 Dose: 100 mls/hr Infusion: 12/20/17 22:36 Dose: 100 mls/hr Admin: 12/20/17 22:06 Dose: 100 mls/hr Infusion: 12/20/17 15:05 Dose: 100 mls/hr Admin: 12/20/17 14:35 Dose: 100 mls/hr Infusion: 12/20/17 06:45 Dose: 100 mls/hr Admin: 12/20/17 06:13 Dose: 100 mls/hr Infusion: 12/19/17 23:50 Dose: 100 mls/hr Admin: 12/19/17 23:17 Dose: 100 mls/hr Infusion: 12/19/17 16:00 Dose: 100 mls/hr Admin: 02/27/18 15:30 Dose: 100 mls/hr Ondansetron HCl (Zofran) 4 mg IVPUSH Q8H PRN PRN Reason: Nausea/Vomiting Last Admin: 12/20/17 16:26 Dose: 4 mg Admin: 12/20/17 07:58 Dose: 4 mg Admin: 12/19/17 19:44 Dose: 4 mg Oxycodone/Acetaminophen (Percocet 325-5 Mg) 1 tab PO Q6H PRN PRN Reason: Pain (moderate 4-6) Last Admin: 12/21/17 09:01 Dose: 1 tab Admin: 12/21/17 01:45 Dose: 1 tab Admin: 12/20/17 16:25 Dose: 1 tab Admin: 12/20/17 03:34 Dose: 1 tab Admin: 12/19/17 21:01 Dose: 1 tab Admin: 12/19/17 15:22 Dose: 1 tab Sodium Chloride (Saline Flush) 10 ml FLUSH ASDIRECTED PRN PRN Reason: Keep Vein Open Last Admin: 12/19/17 10:55 Dose: 10 ml Sodium Chloride (Saline Flush) 2.5 ml FLUSH ASDIRECTED PRN PRN Reason: Keep Vein Open Last Admin: 12/19/17 10:55 Dose: 2.5 ml - Assessment Assessment (Free Text/Narrative):: doing well; yesterday cxr, tiny apical ptx; await chest ct this am - Plan Plan (Free Text/Narrative):: doing well; yesterday cxr, tiny apical ptx; await chest ct this am
--- NOTE | 2017-12-21 13:31 | CT ---
EXAMINATION: CT chest with contrast HISTORY: Spontaneous pneumothorax COMPARISON: Radiographs dated 12/20/2017 TECHNIQUE: Continuous axial CT images obtained through the chest following the administration of 75 m L of Isovue-370 in the right antecubital fossa. Coronal and sagittal reconstructions obtained. FINDINGS: There is a left-sided chest tube noted in place. There is a trace left pneumothorax noted. Bullous emphysematous changes are noted most prominent within the right apex and left upper lobe ante riorly. The heart is normal in size without a pericardial effusion. No mediastinal, hilar, or axillar y lymphadenopathy. Bibasilar atelectasis is present. Central airways are clear. The visualized images of the upper abdomen appear normal. Visualized osseous structures are normal. IMPRESSION: 1. Left-sided chest tube in place with a minimal residual left-sided pneumothorax. 2. Bullous emphysematous changes noted bilaterally, left greater than right.
[2017-12-21] MEDS: Diazepam 2 MG Tab PO PRN (16:20)
[2017-12-22] MEDS: ceFAZolin 1 GM in Premix Bag 1 BAG IV SCH ×3 (05:36→22:19)
[2017-12-22] MEDS: Acetaminophen/oxyCODONE 325-5 MG Tab PO PRN (05:47)
[2017-12-22] MEDS: Lactated Ringers 1,000 ML IV SCH (06:21)
--- NOTE | 2017-12-22 08:50 | PCM.SURGPN ---
- General Info Date of Service: 12/22/17 - Review of Systems Pulmonary: Reports: No Symptoms - Patient Data Vitals - Most Recent: Last Vital Signs Temp 97.2 F 12/21/17 20:00 Pulse 69 12/21/17 20:00 Resp 19 12/21/17 20:00 BP 110/77 12/21/17 20:00 Pulse Ox 94 L 12/21/17 20:00 Weight - Most Recent: 539 lb 7.538 oz I&O - Last 24 Hours: Intake & Output 12/21/17 12/22/17 12/22/17 22:59 06:59 14:59 Intake Total 1896 3150 Output Total 590 2270 Balance 1306 880 Med Orders - Current: Current Medications Diazepam (Valium) 1 mg PO Q12H PRN PRN Reason: Muscle Spasm Last Admin: 12/21/17 16:20 Dose: 1 mg Docusate Sodium (Colace) 100 mg PO DAILY PRN PRN Reason: Constipation Last Admin: 12/19/17 15:23 Dose: 100 mg Hydromorphone HCl (Dilaudid) 1 mg IVPUSH Q8H PRN PRN Reason: Pain Last Admin: 12/22/17 00:26 Dose: 1 mg Lactated Ringer's (Ringers, Lactated) 1,000 mls @ 125 mls/hr IV ASDIRECTED [facility] Last Admin: 12/22/17 06:21 Dose: 125 mls/hr Cefazolin Sodium/Dextrose 1 gm (/ Premix) 50 mls @ 100 mls/hr IV Q8H [facility] Last Admin: 12/22/17 05:36 Dose: 100 mls/hr Ondansetron HCl (Zofran) 4 mg IVPUSH Q8H PRN PRN Reason: Nausea/Vomiting Last Admin: 12/20/17 16:26 Dose: 4 mg Oxycodone/Acetaminophen (Percocet 325-5 Mg) 1 tab PO Q6H PRN PRN Reason: Pain (moderate 4-6) Last Admin: 12/22/17 05:47 Dose: 1 tab Sodium Chloride (Saline Flush) 10 ml FLUSH ASDIRECTED PRN PRN Reason: Keep Vein Open Last Admin: 12/19/17 10:55 Dose: 10 ml Sodium Chloride (Saline Flush) 2.5 ml FLUSH ASDIRECTED PRN PRN Reason: Keep Vein Open Last Admin: 12/19/17 10:55 Dose: 2.5 ml Discontinued Medications Hydromorphone HCl (Dilaudid) 1 mg IVPUSH ONETIME ONE Stop: 12/19/17 12:39 Last Admin: 12/19/17 12:46 Dose: Not Given Hydromorphone HCl (Dilaudid) 1 mg IVPUSH ONETIME ONE Stop: 12/19/17 12:46 Last Admin: 12/19/17 12:45 Dose: 1 mg Hydromorphone HCl (Dilaudid) 1 mg IVPUSH Q6H PRN PRN Reason: Pain Last Admin: 12/20/17 19:45 Dose: 1 mg Iopamidol (Isovue Multipack-370 (76%)) 75 ml IVPUSH ONETIME STA Stop: 12/21/17 09:25 Last Admin: 12/21/17 09:25 Dose: 75 ml Lidocaine HCl (Xylocaine 1%) 20 ml INJECT ONETIME ONE Stop: 12/19/17 10:46 Last Admin: 12/19/17 11:19 Dose: Not Given Lidocaine/Epinephrine (Xylocaine 1% With Epinephrine 1:100,000) 20 ml INJECT ONETIME ONE Stop: 12/19/17 11:11 Last Admin: 12/19/17 11:19 Dose: 20 ml Midazolam HCl (Versed 1 Mg/Ml) 2 mg IVPUSH ONETIME ONE Stop: 12/19/17 11:19 Last Admin: 12/19/17 11:21 Dose: 2 mg Midazolam HCl (Versed 1 Mg/Ml) Confirm Administered Dose 2 mg .ROUTE .STK-MED ONE Stop: 12/19/17 11:20 Last Admin: 12/19/17 16:03 Dose: Not Given Midazolam HCl (Versed 1 Mg/Ml) 2 mg IVPUSH ONETIME ONE Stop: 12/19/17 16:02 Last Admin: 12/19/17 16:02 Dose: 2 mg Morphine Sulfate (Morphine) 10 mg IVPUSH ONETIME ONE Stop: 12/19/17 11:12 Last Admin: 12/19/17 11:16 Dose: 10 mg Morphine Sulfate (Morphine) 2 mg IVPUSH Q6H PRN PRN Reason: Pain Last Admin: 12/19/17 18:29 Dose: 2 mg Morphine Sulfate (Morphine) 4 mg IVPUSH ONETIME ONE Stop: 12/19/17 15:57 Last Admin: 12/19/17 16:03 Dose: 4 mg Morphine Sulfate (Morphine) 1 mg IVPUSH ONETIME ONE Stop: 12/19/17 11:23 Last Admin: 12/19/17 16:04 Dose: 1 mg Morphine Sulfate (Morphine) 1 mg IVPUSH ONETIME ONE Stop: 12/19/17 15:58 Last Admin: 12/19/17 17:01 Dose: Not Given Morphine Sulfate (Morphine) 1 mg IVPUSH ONETIME ONE Stop: 12/19/17 11:27 Last Admin: 12/19/17 17:01 Dose: Not Given Morphine Sulfate (Morphine) 1 mg IVPUSH ONETIME ONE Stop: 12/19/17 11:33 Last Admin: 12/19/17 17:01 Dose: Not Given Morphine Sulfate (Morphine) 1 mg IVPUSH ONETIME ONE Stop: 12/19/17 11:41 Last Admin: 12/19/17 17:01 Dose: Not Given Morphine Sulfate (Morphine) 1 mg IVPUSH ONETIME ONE Stop: 12/19/17 11:26 Last Admin: 12/19/17 11:26 Dose: 1 mg Morphine Sulfate (Morphine) 1 mg IVPUSH ONETIME ONE Stop: 12/19/17 11:33 Last Admin: 12/19/17 11:33 Dose: 1 mg Morphine Sulfate (Morphine) 1 mg IVPUSH ONETIME ONE Stop: 12/19/17 11:41 Last Admin: 12/19/17 11:41 Dose: 1 mg Morphine Sulfate (Morphine) 1 mg IVPUSH ONETIME ONE Stop: 12/19/17 11:27 Last Admin: 12/19/17 11:27 Dose: 1 mg - Exam Lungs: Clear to Auscultation, Normal Respiratory Effort (ct no air leak, cxr pending) - Problem List Review Problem List Initiated/Reviewed/Updated: Yes - My Orders Last 24 Hours: Active Orders 24 hr Category Date Time Status CXR [Chest 1V Frontal] [CR] Routine Exams 12/22/17 06:30 Taken Code Status [Resuscitation Status] Routine Resus Stat 12/21/17 20:36 Ordered Medication Orders Diazepam (Valium) 1 mg PO Q12H PRN PRN Reason: Muscle Spasm Last Admin: 12/21/17 16:20 Dose: 1 mg Admin: 12/20/17 22:06 Dose: 1 mg Admin: 12/20/17 09:55 Dose: 1 mg Docusate Sodium (Colace) 100 mg PO DAILY PRN PRN Reason: Constipation Last Admin: 12/19/17 15:23 Dose: 100 mg Hydromorphone HCl (Dilaudid) 1 mg IVPUSH Q8H PRN PRN Reason: Pain Last Admin: 12/22/17 00:26 Dose: 1 mg Lactated Ringer's (Ringers, Lactated) 1,000 mls @ 125 mls/hr IV ASDIRECTED [facility] Last Admin: 12/22/17 06:21 Dose: 125 mls/hr Infusion: 12/22/17 05:43 Dose: 125 mls/hr Admin: 12/21/17 21:43 Dose: 125 mls/hr Infusion: 12/21/17 21:04 Dose: 125 mls/hr Admin: 12/21/17 13:04 Dose: 125 mls/hr Infusion: 12/21/17 12:13 Dose: 125 mls/hr Admin: 12/21/17 04:13 Dose: 125 mls/hr Infusion: 12/21/17 03:38 Dose: 125 mls/hr Admin: 12/20/17 19:38 Dose: 125 mls/hr Infusion: 12/20/17 17:15 Dose: 125 mls/hr Admin: 12/20/17 09:15 Dose: 125 mls/hr Infusion: 12/20/17 08:42 Dose: 125 mls/hr Admin: 12/20/17 00:42 Dose: 125 mls/hr Infusion: 12/19/17 23:37 Dose: 125 mls/hr Admin: 12/19/17 15:37 Dose: 125 mls/hr Cefazolin Sodium/Dextrose 1 gm (/ Premix) 50 mls @ 100 mls/hr IV Q8H [facility] Last Admin: 12/22/17 05:36 Dose: 100 mls/hr Infusion: 12/21/17 22:29 Dose: 100 mls/hr Admin: 12/21/17 21:59 Dose: 100 mls/hr Infusion: 12/21/17 14:24 Dose: 100 mls/hr Admin: 12/21/17 13:54 Dose: 100 mls/hr Infusion: 12/21/17 07:18 Dose: 100 mls/hr Admin: 12/21/17 06:48 Dose: 100 mls/hr Infusion: 12/20/17 22:36 Dose: 100 mls/hr Admin: 12/20/17 22:06 Dose: 100 mls/hr Infusion: 12/20/17 15:05 Dose: 100 mls/hr Admin: 12/20/17 14:35 Dose: 100 mls/hr Infusion: 12/20/17 06:45 Dose: 100 mls/hr Admin: 12/20/17 06:13 Dose: 100 mls/hr Infusion: 12/19/17 23:50 Dose: 100 mls/hr Admin: 12/19/17 23:17 Dose: 100 mls/hr Infusion: 12/19/17 16:00 Dose: 100 mls/hr Admin: 12/19/17 15:30 Dose: 100 mls/hr Ondansetron HCl (Zofran) 4 mg IVPUSH Q8H PRN PRN Reason: Nausea/Vomiting Last Admin: 12/20/17 16:26 Dose: 4 mg Admin: 12/20/17 07:58 Dose: 4 mg Admin: 12/19/17 19:44 Dose: 4 mg Oxycodone/Acetaminophen (Percocet 325-5 Mg) 1 tab PO Q6H PRN PRN Reason: Pain (moderate 4-6) Last Admin: 12/22/17 05:47 Dose: 1 tab Admin: 12/21/17 18:39 Dose: 1 tab Admin: 12/21/17 09:01 Dose: 1 tab Admin: 12/21/17 01:45 Dose: 1 tab Admin: 12/20/17 16:25 Dose: 1 tab Admin: 12/20/17 03:34 Dose: 1 tab Admin: 12/19/17 21:01 Dose: 1 tab Admin: 12/19/17 15:22 Dose: 1 tab Sodium Chloride (Saline Flush) 10 ml FLUSH ASDIRECTED PRN PRN Reason: Keep Vein Open Last Admin: 12/19/17 10:55 Dose: 10 ml Sodium Chloride (Saline Flush) 2.5 ml FLUSH ASDIRECTED PRN PRN Reason: Keep Vein Open Last Admin: 12/19/17 10:55 Dose: 2.5 ml - Assessment Assessment (Free Text/Narrative):: doing well, ct no air leak; await morning cxr, may water seal or hylick valve, need fu appointment w cardiac thoracic surgery appointment, B pulm emphysema - Plan Plan (Free Text/Narrative):: doing well, ct no air leak; await morning cxr, may water seal or hylick valve, need fu appointment w cardiac thoracic surgery appointment, B pulm emphysema
[2017-12-22] MEDS: Docusate Sodium 100 MG Cap PO PRN (09:21)
[2017-12-22] MEDS: Diazepam 2 MG Tab PO PRN (09:22)
--- NOTE | 2017-12-22 09:37 | CR ---
EXAMINATION: Portable chest radiograph. HISTORY: Left pneumothorax. FINDINGS: The trachea is midline. The cardiomediastinal silhouette is within normal limits. Left-sided chest tu be again noted. No residual pneumothorax identified. No pleural effusion. Mild dependent atelectasis bilaterally. Osseous structures appear unremarkable. IMPRESSION: Stable left-sided chest tube without a residual pneumothorax.
--- NOTE | 2017-12-22 09:59 | PCM.SN ---
- Free Text/Narrative Note: cxr > no ptx; exam , no air leak; ct to water seal
[2017-12-23] MEDS: Acetaminophen/oxyCODONE 325-5 MG Tab PO PRN ×2 (04:23→10:08)
[2017-12-23] MEDS: ceFAZolin 1 GM in Premix Bag 1 BAG IV SCH (06:02)
[2017-12-23] MEDS: Docusate Sodium 100 MG Cap PO PRN (09:01)
--- NOTE | 2017-12-23 12:21 | PCM.DCSUM1 ---
Discharge Summary - Hospital Course Brief History: presented to ED for 1 1/2 days hx of spontaneous ptx L; [address] on L, and lung was up since then; admitted for management; refer to admission h/p for details - Discharge Data Discharge Date: 12/23/17 Discharge Disposition: Home, Self-Care 01 Condition: Stable - Patient Summary/Data Operative Procedure(s) Performed: chest tube insertion L Complications: none Hospital Course: pt admitted to my [facility]; cxr everyday, tiny apical ptx while on suction; ct chest , mod disease, emphysema ant lobe on L, apical on R; water seal X 24 hr, tiny apical ptx, unchanged; chest tube pulled; pt home on script; fu 2 wk to dc stitches; card thor surgeon cx next week; - Patient Instructions Diet: Regular Diet as Tolerated Activity: No Lifting Over 10 Pounds, No Strenuous Activities Driving: Do Not Drive Showering/Bathing: No Showering, No Tub Bathing/Swimming Showering/Bathing, Other: sponge bath till drsg off Wound/Incision Care: Keep Operative Site/Wound Site Clean and Dry, Do NOT Change Dressing Notify Provider of: Fever, Drainage, Nausea and/or Vomiting - Discharge Plan Home Medications: Home Meds . [No Known Home Meds] 12/19/17 [History] Patient Handouts: Pneumothorax Referrals: Mario Webster MD [Physician] - 12/29/17 9:30 am Arnaldo Cabrera MD [Ordering Only Provider] - 12/25/17 11:00 am - Discharge Summary/Plan Comment DC Time >30 min.: Yes - Patient Data Vitals - Most Recent: Last Vital Signs Temp 97.3 F 12/23/17 08:00 Pulse 62 12/23/17 08:00 Resp 12 12/23/17 08:00 BP 130/85 12/23/17 08:00 Pulse Ox 92 L 12/23/17 08:00 Weight - Most Recent: 539 lb 7.538 oz I&O - Last 24 hours: Intake & Output 12/22/17 12/23/17 12/23/17 22:59 06:59 14:59 Intake Total 1650 500 Output Total 2200 2250 Balance -550 -1750 Med Orders - Current: Current Medications Diazepam (Valium) 1 mg PO Q12H PRN PRN Reason: Muscle Spasm Last Admin: 12/22/17 09:22 Dose: 1 mg Docusate Sodium (Colace) 100 mg PO DAILY PRN PRN Reason: Constipation Last Admin: 12/23/17 09:01 Dose: 100 mg Hydromorphone HCl (Dilaudid) 1 mg IVPUSH Q8H PRN PRN Reason: Pain Last Admin: 12/22/17 00:26 Dose: 1 mg Cefazolin Sodium/Dextrose 1 gm (/ Premix) 50 mls @ 100 mls/hr IV Q8H ED Last Admin: 12/23/17 06:02 Dose: 100 mls/hr Ondansetron HCl (Zofran) 4 mg IVPUSH Q8H PRN PRN Reason: Nausea/Vomiting Last Admin: 12/20/17 16:26 Dose: 4 mg Oxycodone/Acetaminophen (Percocet 325-5 Mg) 1 tab PO Q6H PRN PRN Reason: Pain (moderate 4-6) Last Admin: 12/23/17 10:08 Dose: 1 tab Sodium Chloride (Saline Flush) 10 ml FLUSH ASDIRECTED PRN PRN Reason: Keep Vein Open Last Admin: 12/19/17 10:55 Dose: 10 ml Sodium Chloride (Saline Flush) 2.5 ml FLUSH ASDIRECTED PRN PRN Reason: Keep Vein Open Last Admin: 12/19/17 10:55 Dose: 2.5 ml Discontinued Medications Hydromorphone HCl (Dilaudid) 1 mg IVPUSH ONETIME ONE Stop: 12/19/17 12:39 Last Admin: 12/19/17 12:46 Dose: Not Given Hydromorphone HCl (Dilaudid) 1 mg IVPUSH ONETIME ONE Stop: 12/19/17 12:46 Last Admin: 12/19/17 12:45 Dose: 1 mg Hydromorphone HCl (Dilaudid) 1 mg IVPUSH Q6H PRN PRN Reason: Pain Last Admin: 12/20/17 19:45 Dose: 1 mg Lactated Ringer's (Ringers, Lactated) 1,000 mls @ 125 mls/hr IV ASDIRECTED ED Last Admin: 12/22/17 06:21 Dose: 125 mls/hr Iopamidol (Isovue Multipack-370 (76%)) 75 ml IVPUSH ONETIME STA Stop: 12/21/17 09:25 Last Admin: 12/21/17 09:25 Dose: 75 ml Lidocaine HCl (Xylocaine 1%) 20 ml INJECT ONETIME ONE Stop: 12/19/17 10:46 Last Admin: 12/19/17 11:19 Dose: Not Given Lidocaine/Epinephrine (Xylocaine 1% With Epinephrine 1:100,000) 20 ml INJECT ONETIME ONE Stop: 12/19/17 11:11 Last Admin: 12/19/17 11:19 Dose: 20 ml Midazolam HCl (Versed 1 Mg/Ml) 2 mg IVPUSH ONETIME ONE Stop: 12/19/17 11:19 Last Admin: 12/19/17 11:21 Dose: 2 mg Midazolam HCl (Versed 1 Mg/Ml) Confirm Administered Dose 2 mg .ROUTE .STK-MED ONE Stop: 12/19/17 11:20 Last Admin: 12/19/17 16:03 Dose: Not Given Midazolam HCl (Versed 1 Mg/Ml) 2 mg IVPUSH ONETIME ONE Stop: 12/19/17 16:02 Last Admin: 12/19/17 16:02 Dose: 2 mg Morphine Sulfate (Morphine) 10 mg IVPUSH ONETIME ONE Stop: 12/19/17 11:12 Last Admin: 12/19/17 11:16 Dose: 10 mg Morphine Sulfate (Morphine) 2 mg IVPUSH Q6H PRN PRN Reason: Pain Last Admin: 12/19/17 18:29 Dose: 2 mg Morphine Sulfate (Morphine) 4 mg IVPUSH ONETIME ONE Stop: 12/19/17 15:57 Last Admin: 12/19/17 16:03 Dose: 4 mg Morphine Sulfate (Morphine) 1 mg IVPUSH ONETIME ONE Stop: 12/19/17 11:23 Last Admin: 12/19/17 16:04 Dose: 1 mg Morphine Sulfate (Morphine) 1 mg IVPUSH ONETIME ONE Stop: 12/19/17 15:58 Last Admin: 12/19/17 17:01 Dose: Not Given Morphine Sulfate (Morphine) 1 mg IVPUSH ONETIME ONE Stop: 12/19/17 11:27 Last Admin: 12/19/17 17:01 Dose: Not Given Morphine Sulfate (Morphine) 1 mg IVPUSH ONETIME ONE Stop: 12/19/17 11:33 Last Admin: 12/19/17 17:01 Dose: Not Given Morphine Sulfate (Morphine) 1 mg IVPUSH ONETIME ONE Stop: 12/19/17 11:41 Last Admin: 12/19/17 17:01 Dose: Not Given Morphine Sulfate (Morphine) 1 mg IVPUSH ONETIME ONE Stop: 12/19/17 11:26 Last Admin: 12/19/17 11:26 Dose: 1 mg Morphine Sulfate (Morphine) 1 mg IVPUSH ONETIME ONE Stop: 12/19/17 11:33 Last Admin: 12/19/17 11:33 Dose: 1 mg Morphine Sulfate (Morphine) 1 mg IVPUSH ONETIME ONE Stop: 12/19/17 11:41 Last Admin: 12/19/17 11:41 Dose: 1 mg Morphine Sulfate (Morphine) 1 mg IVPUSH ONETIME ONE Stop: 12/19/17 11:27 Last Admin: 12/19/17 11:27 Dose: 1 mg *Q Meaningful Use (DIS) - VTE *Q VTE Criteria *Q: - Stroke *Q Stroke Criteria *Q: - AMI *Q AMI Criteria *Q:
[2017-12-23] MEDS ORDERED: FLU Vacc QS 2017-18 (6mos UP)/PF 60 MCG/0.5 ML Syringe IM ONE (12:45)
--- NOTE | 2017-12-25 05:55 | CR ---
EXAM DATE: 12/19/17 PATIENT'S AGE: 42 Patient: CARLOZ CARRASQUILLO Facility: [place], [place] Site . Site : 1975 Study: XRay Chest [id number]/3/2018 10:34:46 AM Ordering Physician: Eleanor Martin Final Report: INDICATION: Left-sided pneumothorax. Chest tube. Follow up. TECHNIQUE: AP portable chest at 10:26 a.m. COMPARISON: December 22, 2017. FINDINGS: There is a tiny left apical lateral pneumothorax. There is a single left-sided chest tube in good position. Platelike atelectasis within both mid lungs. Overall heart size is normal. Old fracture deformity of the right clavicle. IMPRESSION: Tiny left apical lateral pneumothorax. Single left-sided chest tube in good position. Atelectasis within the mid lungs. Dictated by Chris Gallagher MD @ Dec 23 2017 10:50AM (Electronic Signature) Report Signed by Proxy. KALLI
== END 2017-12-23 13:00 | disposition home or self-care (01) | DRG 201 ==
LOC: MW.ED 09:58 → MW.MS 13:00
PROVIDERS: ADMIT Surgery; ATTEND Surgery
PROC: 0W9B00Z Drainage of Left Pleural Cavity with Drainage Device, Open Approach (ICD-10-PCS; principal; 2017-12-19)
DX: J93.11 Primary spontaneous pneumothorax (principal); J43.9 Emphysema, unspecified
CPT/HCPCS: 36415; 71045; 71045-26; 71046; 71046-26; 71260; 71260-26; 80053; 85025; 85610; 90686; 96374; 96375; 99283; 99285-25; A9270-GY; J0690; J1170; J2250; J2270; J2405; J7120; Q9967

== ENCOUNTER 2017-12-23 15:27 | Emergency (ER) | payer MEDICAID ==
--- NOTE | 2017-12-23 16:02 | EDM.PDOC ---
ED HPI GENERAL MEDICAL PROBLEM - General Chief Complaint: Lower Extremity Injury/Pain Stated Complaint: R KNEE PAIN Time Seen by Provider: 12/23/17 15:55 Source of Information: Reports: Patient History Limitations: Reports: No Limitations - History of Present Illness INITIAL COMMENTS - FREE TEXT/NARRATIVE: HISTORY AND PHYSICAL: History of present illness: [Comes to the emergency room complaining of right knee and leg pain. Patient was admitted to the hospital on December [address] Webster due to a left-sided spontaneous pneumothorax. He was discharged to home 2 hours before his return to ER to evaluated for this complaint. As he was walking out of the hospital he noticed some point tenderness over his R patella. He didn't think much of it and went home. Since then, the discomfort has intensified and has spread to the lateral aspect of his knee, and lateral lower leg. Is also moving up his lower lateral thigh. No fever or chills. Pain with weightbearing, but is able to move his leg well. Denies chest pain shortness of breath and difficulty breathing.] Review of systems: As per history of present illness and below otherwise all systems reviewed and negative. Past medical history: As per history of present illness and as reviewed below otherwise noncontributory. Surgical history: As per history of present illness and as reviewed below otherwise noncontributory. Social history: No reported history of drug or alcohol abuse. Family history: As per history of present illness and as reviewed below otherwise noncontributory. Physical exam: HEENT: Atraumatic, normocephalic. Lungs: Clear to auscultation, breath sounds equal bilaterally. Heart: S1S2, regular rate and rhythm. Extremities: Patella is normal in appearance, other than some mild erythema over the lateral aspect. point tenderness over right lateral patella. Mild erythema is present below and above right lateral knee. Is exquisitely tender with palpation to right calf and lateral thigh. Neurovascular unremarkable. Neuro: Awake, alert, oriented. Motor and sensory unremarkable throughout. Exam nonfocal. Diagnostics: [Venous Doppler ultrasound right lower extremity, CBC, uric acid] Impression: [Right leg pain] Plan: [Notified patient of normal U/S. Will treat as cellulitis with cephalexin 500mg qid x 10 days. F/u w/ PCP this week. Pt in agreement w/ plan.] Definitive disposition and diagnosis as appropriate pending reevaluation and review of above. Right Leg Pain Score (Numeric/FACES): 6 - Related Data Allergies Allergy/AdvReac Type Severity Reaction Status Date / Time No Known Allergies Allergy Verified 12/23/17 15:58 Home Meds: Home Meds Acetaminophen/oxyCODONE [Percocet 325-5 MG] 1 each PO Q6H PRN #30 tab 12/23/17 [ Rx] Cephalexin 500 mg PO QID 10 Days #40 capsule 12/23/17 [Rx] Docusate Sodium [Colace] 100 mg PO DAILY 5 Days #5 cap 12/23/17 [Rx] Past Medical History Respiratory History: Reports: Pneumothorax Genitourinary History: Reports: None Musculoskeletal History: Reports: Gout - Infectious Disease History Infectious Disease History: Reports: Chicken Pox Social & Family History - Family History Family Medical History: Noncontributory - Tobacco Use Smoking Status *Q: Former Smoker Used Tobacco, but Quit: Yes Month Tobacco Last Used: 2002 Second Hand Smoke Exposure: No - Caffeine Use Caffeine Use: Reports: Energy Drinks - Recreational Drug Use Recreational Drug Use: No Review of Systems - Review of Systems Review Of Systems: ROS reveals no pertinent complaints other than HPI. ED EXAM, GENERAL - Physical Exam Exam: See Below Course - Vital Signs Last Recorded V/S: Last Vital Signs Temp 98.0 F 12/23/17 15:53 Pulse 89 12/23/17 15:53 Resp 16 12/23/17 15:53 BP 143/107 H 12/23/17 15:53 Pulse Ox 95 12/23/17 15:53 - Orders/Labs/Meds Labs: Laboratory Tests 12/23/17 12/23/17 Range/Units 16:16 16:16 WBC 7.80 (4.0-11.0) K/uL RBC 5.00 (4.50-5.90) M/uL Hgb 16.1 (13.0-17.0) g/dL Hct 46.1 (38.0-50.0) % MCV 92.2 (80.0-98.0) fL MCH 32.2 H (27.0-32.0) pg MCHC 34.9 (31.0-37.0) g/dL RDW Std Deviation 39.4 (28.0-62.0) fl RDW Coeff of Panda 12 (11.0-15.0) % Plt Count 228 (150-400) K/uL MPV 10.90 (7.40-12.00) fL Neut % (Auto) 69.5 (48.0-80.0) % Lymph % (Auto) 22.8 (16.0-40.0) % [place] % (Auto) 6.4 (0.0-15.0) % Eos % (Auto) 1.0 (0.0-7.0) % Baso % (Auto) 0.3 (0.0-1.5) % Neut # (Auto) 5.4 (1.4-5.7) K/uL Lymph # (Auto) 1.8 (0.6-2.4) K/uL [place] # (Auto) 0.5 (0.0-0.8) K/uL Eos # (Auto) 0.1 (0.0-0.7) K/uL Baso # (Auto) 0.0 (0.0-0.1) K/uL Uric Acid 6.3 (2.6-7.2) mg/dL Departure - Departure Time of Disposition: 18:20 Disposition: Home, Self-Care 01 Condition: Good Clinical Impression: Cellulitis - Discharge Information Prescriptions: Cephalexin 500 mg PO QID 10 Days #40 capsule Instructions: Cellulitis, Adult, [id number] Referrals: PCP,Unknown [Primary Care Provider] - Forms: ED Department Discharge Additional Instructions: The following information is given to patients seen in the emergency department who are being discharged to home. This information is to outline your options for follow-up care. We provide all patients seen in our emergency department with a follow-up referral. The need for follow-up, as well as the timing and circumstances, are variable depending upon the specifics of your emergency department visit. If you don't have a primary care physician on staff, we will provide you with a referral. We always advise you to contact your personal physician following an emergency department visit to inform them of the circumstance of the visit and for follow-up with them and/or the need for any referrals to a consulting specialist. The emergency department will also refer you to a specialist when appropriate. This referral assures that you have the opportunity for follow-up care with a specialist. All of these measure are taken in an effort to provide you with optimal care, which includes your follow-up. Under all circumstances we always encourage you to contact your private physician who remains a resource for coordinating your care. When calling for follow-up care, please make the office aware that this follow-up is from your recent emergency room visit. If for any reason you are refused follow-up, please contact the [facility] emergency department at and asked to speak to the emergency department charge nurse. [facility] [address] [place] [id number] Follow-up with your primary care provider in 48-72 hours. Take antibiotics as prescribed. Return to ER as needed as discussed.
--- NOTE | 2017-12-25 06:14 | US ---
EXAM DATE: 12/23/17 PATIENT'S AGE: 42 Patient: CARLOZ CARRASQUILLO Facility: [place], [place] Site . Site : 1975 Study: US Extremity Right -12/23/2017 5:47:43 PM Ordering Physician: Doctor Tinajero Final Report: INDICATION: Right calf pain TECHNIQUE: Ultrasound venous duplex lower right extremity. Compression venous exam was performed using juan-scale, color Doppler, and spectral Doppler imaging. COMPARISON: None. FINDINGS: Sonographic imaging demonstrates the right common femoral, deep femoral, superficial femoral, popliteal, posterior tibial, and greater saphenous and the contralateral left common femoral veins to be fully compressible with normal color Doppler blood flow. Remainder negative. IMPRESSION: Normal right lower extremity venous ultrasound without evidence of DVT. Dictated by Sandip Marshall MD @ Dec 23 2017 6:08PM (Electronic Signature) Report Signed by Proxy. KALLI
== END 2017-12-23 18:28 | disposition home or self-care (01) ==
LOC: MW.ED 15:27
DX: L03.115 Cellulitis of right lower limb (principal); Z87.891 Personal history of nicotine dependence; Z79.899 Other long term (current) drug therapy
CPT/HCPCS: 36415; 84550; 85025; 93971-26-RT; 93971-RT; 99283; 99284-25

== ENCOUNTER 2018-03-23 11:02 | Day surgery (SDC) | payer MEDICAID ==
[~2018-03-23 11:02] MED LIST: Lactated Ringers 1,000 ML IV SCH
--- NOTE | 2018-03-23 11:45 | PCM.PREANE ---
Preanesthetic Assessment - Anesthesia/Transfusion/Family Hx Anesthesia History: Prior Anesthesia Without Reaction Family History of Anesthesia Reaction: No Transfusion History: No Prior Transfusion(s) Intubation History: Unknown - Review of Systems General: No Symptoms Pulmonary: No Symptoms Cardiovascular: No Symptoms Gastrointestinal: Difficulty Swallowing Neurological: No Symptoms Other: Reports: None - Physical Assessment O2 Sat by Pulse Oximetry: 97 Respiratory Rate: 16 Vital Signs: Last Vital Signs Temp 36.2 C 03/23/18 11:12 Pulse 57 L 03/23/18 11:12 Resp 16 03/23/18 11:12 BP 135/80 03/23/18 11:12 Pulse Ox 97 03/23/18 11:12 Height: 1.83 m Weight: 110.677 kg ASA Class: 2 Mental Status: Alert & Oriented x3 Airway Class: Mallampati = 2 Dentition: Reports: Normal Dentition Thyro-Mental Finger Breadths: 3 Mouth Opening Finger Breadths: 3 ROM/Head Extension: Full Lungs: Clear to Auscultation, Normal Respiratory Effort Cardiovascular: Regular Rate, Regular Rhythm - Allergies Allergies/Adverse Reactions: Allergies Allergy/AdvReac Type Severity Reaction Status Date / Time No Known Allergies Allergy Verified 03/20/18 13:58 - Blood Blood Available: No - Anesthesia Plan Pre-Op Medication Ordered: None - Acknowledgements Anesthesia Type Planned: MAC Pt an Appropriate Candidate for the Planned Anesthesia: Yes Alternatives and Risks of Anesthesia Discussed w Pt/Guardian: Yes Pt/Guardian Understands and Agrees with Anesthesia Plan: Yes PreAnesthesia Questionnaire Cardiovascular History: Reports: High Cholesterol Respiratory History: Reports: Pneumothorax Gastrointestinal History: Reports: GERD Genitourinary History: Reports: None Musculoskeletal History: Reports: Gout Neurological History: Reports: Concussion Psychiatric History: Reports: Anxiety Endocrine/Metabolic History: Reports: Obesity/BMI 30+ - Infectious Disease History Infectious Disease History: Reports: Chicken Pox - Past Surgical History Respiratory Surgical History: Reports: Other (See Below) Other Respiratory Surgeries/Procedures: thoracostomy x2 removal of blebs - SUBSTANCE USE Smoking Status *Q: Never Smoker Recreational Drug Use History: No - HOME MEDS Home Medications: Home Meds Allopurinol [Zyloprim] 300 mg PO DAILY 03/20/18 [History] Omeprazole 20 mg PO ACBREAKFAST 03/20/18 [History] Rosuvastatin Calcium 20 mg PO DAILY 03/20/18 [History] - CURRENT (IN HOUSE) MEDS Current Meds: Current Medications Lactated Ringer's (Ringers, Lactated) 1,000 mls @ 125 mls/hr IV ASDIRECTED [facility] Last Admin: 03/23/18 11:17 Dose: 125 mls/hr
[2018-03-23] MEDS ORDERED: Lidocaine 2% 5 ML SDV ONE (12:29)
[2018-03-23] MEDS ORDERED: Midazolam 1 MG/ML 2 ML SDV ONE (12:29)
[2018-03-23] MEDS ORDERED: Propofol 200 MG/20 ML SDV ONE ×3 (12:30→12:59)
[2018-03-23] MEDS ORDERED: fentaNYL 100 MCG/2 ML SDV ONE (12:50)
--- NOTE | 2018-03-23 13:27 | PCM.OPNOTE ---
- General Post-Op/Procedure Note Date of Surgery/Procedure: 03/23/18 Operative Procedure(s): Esophagogastroduodenoscopy with gastric and esophageal biopsies and balloon dilatation of esophageal stricture at 35 cm. Dilation to 54 [place]. Pre Op Diagnosis: Progressive dysphagia Post-Op Diagnosis: Esophageal stricture at 35 cm. Gastritis. Anesthesia Technique: MAC (ASA II) Primary Surgeon: Ry Mendoza Condition: Good Free Text/Narrative:: DICTATION to CPT CODE 98813
[2018-03-23] MEDS ORDERED: Lactated Ringers 1,000 ML IV SCH (13:30)
--- NOTE | 2018-03-23 13:40 | OR ---
SURGEON: Ry Mendoza M.D. DATE OF PROCEDURE: 03/23/2018 OPERATION PERFORMED: Esophagogastroduodenoscopy with gastric and esophageal biopsies and balloon dilatation of esophageal stricture at 35 cm. DESCRIPTION OF PROCEDURE: The patient was taken to the endoscopy room and positioned on the endoscopy table in the supine position. Time-out was called for appropriate identification of the patient and procedure. Monitored anesthesia care was provided. The bite block was placed between the patient's teeth. The gastroscope was inserted through the bite block and advanced into the esophagus. The patient does have a stricture, but I was able to traverse this with the gastroscope and advance the scope through the stomach into the duodenum, so examination could be carried out in a retrograde fashion. The duodenum shows no acute inflammatory changes or ulcerations. The stomach does show mild gastritis. No acute ulcerations were noted. The gastroscope was retroflexed to visualize the proximal stomach. No tumors or polyps were seen proximally and no significant hiatal hernia was noted. The gastroscope was then straightened and slowly withdrawn. The GE junction was well defined and shows no acute inflammatory changes. At 35 cm from the incisors, there is a stricture noted that does show significant inflammatory change. This was balloon dilated to the equivalent of a 54-[place] dilator. The scope still easily went through and it did appear that the lumen was now more open. Separate biopsies of the esophageal stricture were obtained. There was a small amount of bleeding that was present. No pulsatile bleeding was noted, but certainly, this is a very acute inflammatory process in his esophagus. The gastroscope was then slowly withdrawn. The vocal cords were visualized as the scope was withdrawn and noted to move symmetrically. The gastroscope was then removed with the patient having tolerated the procedure well. He was taken to recovery room in stable condition. LISA / ROSASNA /[id number] KALLI
== END 2018-03-23 14:05 | disposition home or self-care (01) ==
LOC: MW.SDS 11:02
PROVIDERS: ATTEND Surgery
DX: K22.2 Esophageal obstruction (principal); K22.70 Barrett's esophagus without dysplasia; K20.9 Esophagitis, unspecified; K29.50 Unspecified chronic gastritis without bleeding; K31.7 Polyp of stomach and duodenum; E66.9 Obesity, unspecified; Z68.33 Body mass index [BMI] 33.0-33.9, adult; E78.00 Pure hypercholesterolemia, unspecified; K21.9 Gastro-esophageal reflux disease without esophagitis; M10.9 Gout, unspecified; J93.9 Pneumothorax, unspecified; Z79.899 Other long term (current) drug therapy
CPT/HCPCS: 43233; 43239; C1726; J2250; J3010; J7120; 00731; 88305; 88312; J2704

== ENCOUNTER 2022-11-17 18:03 | Inpatient (IN) | payer SELFPAY ==
[2022-11-17] MEDS ORDERED: Sodium Chloride 0.9% 2.5 ML Syringe FLUSH PRN ×2 (19:13→21:40)
[2022-11-17] MEDS ORDERED: Sodium Chloride 0.9% 10 ML Syringe FLUSH PRN ×2 (19:13→21:40)
[2022-11-17 19:55] LABS: CARBON DIOXIDE,CO2 27.2 mmol/L (21.0-32.0); POTASSIUM,K 4.2 mmol/L (3.5-5.1)
[2022-11-17] MEDS ORDERED: Lidocaine 1% 5 ML VIAL ONE (20:13)
[2022-11-17] MEDS ORDERED: Lidocaine 1% 5 ML VIAL INJECT ONE (20:37)
[2022-11-17] MEDS ORDERED: HYDROmorphone 1 MG/ML Syringe ONE (20:50)
[2022-11-17] MEDS ORDERED: Ondansetron 4 MG/2 ML SDV ONE (20:52)
[2022-11-17 20:59] LABS: CORONAVIRUS COVID-19 NAA NEGATIVE (NEGATIVE); INFLUENZA A NAA NEGATIVE (NEGATIVE); INFLUENZA B NAA NEGATIVE (NEGATIVE)
[2022-11-17] MEDS ORDERED: Ondansetron 4 MG/2 ML SDV IVPUSH STA (21:13)
[2022-11-17] MEDS ORDERED: HYDROmorphone 1 MG/ML Syringe IVPUSH STA (21:13)
[2022-11-17] MEDS ORDERED: Sodium Chloride 0.9% 20 ML SDV IV PRN (21:40)
[2022-11-17] MEDS: HYDROmorphone 1 MG/ML Syringe IVPUSH PRN (22:22)
[2022-11-17] MEDS: Lactated Ringers 1,000 ML IV SCH (22:41)
[2022-11-18] MEDS: Acetaminophen/HYDROcodone 325-5 MG Tab PO PRN ×4 (00:18→19:27)
[2022-11-18] MEDS: HYDROmorphone 1 MG/ML Syringe IVPUSH PRN ×4 (02:21→17:06)
[2022-11-18] MEDS: Ondansetron 4 MG/2 ML SDV IVPUSH PRN ×2 (08:13→20:10)
[2022-11-18] MEDS: Lactated Ringers 1,000 ML IV SCH ×2 (09:29→20:10)
[2022-11-19] MEDS: HYDROmorphone 1 MG/ML Syringe IVPUSH PRN (00:01)
[2022-11-19] MEDS: Acetaminophen/HYDROcodone 325-5 MG Tab PO PRN (03:41)
[2022-11-19] MEDS: Lactated Ringers 1,000 ML IV SCH (05:44)
== END 2022-11-19 12:00 | disposition home or self-care (01) | DRG 201 ==
LOC: MW.ED 18:03 → MW.MS 21:20
PROVIDERS: ADMIT Surgery; ATTEND Surgery
PROC: 0W9930Z Drainage of Right Pleural Cavity with Drainage Device, Percutaneous Approach (ICD-10-PCS; principal; 2022-11-17)
DX: J93.11 Primary spontaneous pneumothorax (principal); K21.9 Gastro-esophageal reflux disease without esophagitis; F41.9 Anxiety disorder, unspecified; E78.5 Hyperlipidemia, unspecified; Z20.822 Contact with and (suspected) exposure to COVID-19; E66.9 Obesity, unspecified; Z68.35 Body mass index [BMI] 35.0-35.9, adult
CPT/HCPCS: 0240U; 36415; 71045; 71045-26; 71046; 71046-26; 80053; 85025; 93005; 96374; 96375; 99285-25; A9270-GY; J1170; J2405; J3490; J7120

== ENCOUNTER 2023-08-12 19:14 | Emergency (ER) | payer MEDICAID | END 2023-08-12 20:40 | disposition home or self-care (01) | LOC: MW.ED 19:14 | DX: M79.601 Pain in right arm (principal); M10.9 Gout, unspecified; E66.9 Obesity, unspecified; Z68.33 Body mass index [BMI] 33.0-33.9, adult; Z88.5 Allergy status to narcotic agent; Z79.899 Other long term (current) drug therapy | CPT/HCPCS: 99283 ==

== ENCOUNTER 2024-04-09 19:41 | Emergency (ER) | payer MEDICAID ==
[2024-04-09] MEDS: Aspirin 81 MG Tab.Chew PO ONE (19:50)
[2024-04-09] MEDS: Ondansetron 4 MG/2 ML SDV IVPUSH ONE ×3 (19:52→21:34)
[2024-04-09] MEDS: HYDROmorphone 1 MG/ML Syringe IVPUSH ONE (19:52)
[2024-04-09 20:00] LABS: BASOPHILS ABSOLUTE AUTO 0.01 K/uL (0.00-0.20); BASOPHILS PERCENT AUTO 0.1 % (0.0-1.0); EOSINOPHILS ABSOLUTE AUTO 0.06 K/uL (0.00-0.45); EOSINOPHILS PERCENT AUTO 0.7 % (0.0-6.0); HEMATOCRIT 48.4 % (42.0-52.0); HEMOGLOBIN 17.1 g/dL (14.0-18.0); IMMATURE GRAN ABSOLUTE AUTO 0.03 K/uL (0.00-0.05); IMMATURE GRAN PERCENT AUTO 0.4 % (0.0-0.4); LYMPHOCYTES ABSOLUTE AUTO 2.77 K/uL (1.00-4.80); LYMPHOCYTES PERCENT AUTO 32.7 % (24.0-44.0); MEAN CORPUSCULAR HEMOGLOBIN 32.8 pg (28.0-32.0); MEAN CORPUSCULAR HGB CONC 35.3 g/dL (32.0-36.0); MEAN CORPUSCULAR VOLUME 92.7 fL (83.0-99.0); MONOCYTES ABSOLUTE AUTO 0.62 K/uL (0.00-0.80); MONOCYTES PERCENT AUTO 7.3 % (0.0-8.0); NEUTROPHILS ABSOLUTE AUTO 4.97 K/uL (1.80-7.70); NEUTROPHILS PERCENT AUTO 58.8 % (41.0-71.0); PLATELET COUNT,PLT 199 K/uL (150-400); RED BLOOD CELL COUNT 5.22 M/uL (4.52-5.90); WHITE BLOOD CELL COUNT,WBC 8.46 K/uL (3.9-11.3)
[2024-04-09] MEDS: Amiodarone 150 MG/3 ML SDV IVPUSH STA (20:15)
[2024-04-09 20:27] LABS: A/G RATIO 1.3 (0.9-1.6); ALANINE AMINOTRANSFERASE,ALT 62 IU/L (14-63); ALBUMIN 4.4 g/dL (3.4-5.0); ALKALINE PHOSPHATASE 82 U/L (46-116); ASPARTATE AMNIOTRANSFERASE,AST 30 IU/L (15-37); BILIRUBIN TOTAL 0.5 mg/dL (0.2-1.0); BLOOD UREA NITROGEN,BUN 12 mg/dL (7.0-18.0); CALCIUM 9.4 mg/dL (8.5-10.1); CHLORIDE,CL 103 mmol/L (98-107); CREATININE 1.3 mg/dL (0.8-1.3); GLUCOSE RANDOM 91 mg/dL (74-106); LIPASE 40 U/L (16-77); MAGNESIUM 2.2 mg/dL (1.8-2.4); POTASSIUM,K 3.9 mmol/L (3.5-5.1); PROTEIN TOTAL,TP 7.9 g/dL (6.4-8.2); SODIUM,NA 140 mmol/L (136-148)
[2024-04-09 20:34] LABS: ESTIMATED GFR 67 mL/min (>60)
[2024-04-09] MEDS: Ondansetron 4 MG/2 ML SDV ONE (20:43)
[2024-04-09] MEDS: Tenecteplase 50 MG Kit ONE (20:43)
[2024-04-09] MEDS: Tenecteplase 50 MG Kit IV STA (20:51)
[2024-04-09] MEDS: Nitroglycerin 0.4 MG Tab.SL SL PRN (21:29)
[2024-04-09] MEDS: Heparin Sodium 5,000 Units/ML Vial IVPUSH ONE (21:34)
[2024-04-09] MEDS: Heparin Sodium/0.45% NaCl 500 ML IV SCH (21:47)
== END 2024-04-09 22:00 ==
LOC: MW.ED 19:41
DX: I21.3 ST elevation (STEMI) myocardial infarction of unspecified site (principal); E66.9 Obesity, unspecified; Z75.8 Other problems related to medical facilities and other health care; Z88.5 Allergy status to narcotic agent; Z79.899 Other long term (current) drug therapy; Z68.35 Body mass index [BMI] 35.0-35.9, adult
CPT/HCPCS: 36415; 71045; 80053; 83690; 83735; 84484; 85025; 85379; 92950; 92960; 93005; 96365; 96366; 96368; 96375; 96376; 99285; A9270; J0282; J1170; J1644; J2405; J3101; 93010; 99291

== ENCOUNTER 2024-07-10 20:57 | Emergency (ER) | payer MEDICAID ==
[2024-07-10 21:12] LABS: BASOPHILS ABSOLUTE AUTO 0.02 K/uL (0.00-0.20); BASOPHILS PERCENT AUTO 0.3 % (0.0-1.0); EOSINOPHILS PERCENT AUTO 1.3 % (0.0-6.0); HEMATOCRIT 46.8 % (42.0-52.0); IMMATURE GRAN ABSOLUTE AUTO 0.03 K/uL (0.00-0.05); IMMATURE GRAN PERCENT AUTO 0.4 % (0.0-0.4); LYMPHOCYTES ABSOLUTE AUTO 2.73 K/uL (1.00-4.80); LYMPHOCYTES PERCENT AUTO 35.1 % (24.0-44.0); MEAN CORPUSCULAR HGB CONC 34.2 g/dL (32.0-36.0); MEAN CORPUSCULAR VOLUME 93.6 fL (83.0-99.0); MEAN PLATELET VOLUME 11.4 fL (9.4-12.4); MONOCYTES ABSOLUTE AUTO 0.66 K/uL (0.00-0.80); MONOCYTES PERCENT AUTO 8.5 % (0.0-8.0); NEUTROPHILS ABSOLUTE AUTO 4.23 K/uL (1.80-7.70); NEUTROPHILS PERCENT AUTO 54.4 % (41.0-71.0); PLATELET COUNT,PLT 170 K/uL (150-400); WHITE BLOOD CELL COUNT,WBC 7.77 K/uL (3.9-11.3)
[2024-07-10] MEDS: Aspirin 81 MG Tab.Chew PO ONE (21:29)
[2024-07-10] MEDS: Sodium Chloride 0.9% 2.5 ML Syringe FLUSH PRN (21:30)
[2024-07-10] MEDS: Sodium Chloride 0.9% 10 ML Syringe FLUSH PRN (21:30)
[2024-07-10 22:39] LABS: A/G RATIO 1.3 (0.9-1.6); BILIRUBIN TOTAL 0.6 mg/dL (0.2-1.0); CARBON DIOXIDE,CO2 28.7 mmol/L (21.0-32.0); CREATININE 1.2 mg/dL (0.8-1.3); EST CRCL DRUG DOSING (CG) 80.83 mL/min; POTASSIUM,K 4.1 mmol/L (3.5-5.1)
== END 2024-07-11 00:53 | disposition home or self-care (01) ==
LOC: MW.ED 20:57
DX: R07.9 Chest pain, unspecified (principal); I10 Essential (primary) hypertension; I25.2 Old myocardial infarction; E78.00 Pure hypercholesterolemia, unspecified; E66.9 Obesity, unspecified; Z75.8 Other problems related to medical facilities and other health care; Z79.82 Long term (current) use of aspirin; Z79.899 Other long term (current) drug therapy; Z88.5 Allergy status to narcotic agent; Z68.35 Body mass index [BMI] 35.0-35.9, adult
CPT/HCPCS: 36415; 71045; 80053; 84484; 85025; 93005; 99285; A9270; J3490; 93010; 99284

== ENCOUNTER 2025-05-27 13:44 | Emergency (ER) | payer MEDICAID ==
[2025-05-27] MEDS ORDERED: Sodium Chloride 0.9% 10 ML Syringe FLUSH PRN (13:50)
[2025-05-27] MEDS ORDERED: Sodium Chloride 0.9% 2.5 ML Syringe FLUSH PRN (13:50)
[2025-05-27 14:12] LABS: BASOPHILS ABSOLUTE AUTO 0.02 K/uL (0.00-0.20); BASOPHILS PERCENT AUTO 0.7 % (0.0-1.0); EOSINOPHILS ABSOLUTE AUTO 0.02 K/uL (0.00-0.45); EOSINOPHILS PERCENT AUTO 0.7 % (0.0-6.0); IMMATURE GRAN ABSOLUTE AUTO 0.01 K/uL (0.00-0.05); IMMATURE GRAN PERCENT AUTO 0.3 % (0.0-0.4); LYMPHOCYTES ABSOLUTE AUTO 0.92 K/uL (1.00-4.80); LYMPHOCYTES PERCENT AUTO 30.3 % (24.0-44.0); MEAN PLATELET VOLUME 10.9 fL (9.4-12.4); MONOCYTES ABSOLUTE AUTO 0.45 K/uL (0.00-0.80); MONOCYTES PERCENT AUTO 14.8 % (0.0-8.0); NEUTROPHILS ABSOLUTE AUTO 1.62 K/uL (1.80-7.70); NEUTROPHILS PERCENT AUTO 53.2 % (41.0-71.0); NRBC ABSOLUTE 0.00 K/uL (0.00-0.02); NRBC PERCENT 0.0 /100WBC (0.0-0.2); PLATELET COUNT,PLT 120 K/uL (150-400); RED BLOOD CELL COUNT 4.63 M/uL (4.52-5.90); WHITE BLOOD CELL COUNT,WBC 3.04 K/uL (3.9-11.3)
[2025-05-27] MEDS: Iopamidol 755 MG/ML 500 ML Multipack Bottle IVPUSH STA (14:19)
[2025-05-27 14:22] LABS: INR 0.99 (0.86-1.11)
[2025-05-27 14:46] LABS: A/G RATIO 1.2 (0.9-1.6); ALANINE AMINOTRANSFERASE,ALT 80.0 IU/L (14-63); ASPARTATE AMNIOTRANSFERASE,AST 44.0 IU/L (15-37); BILIRUBIN TOTAL 0.6 mg/dL (0.2-1.0); BLOOD UREA NITROGEN,BUN 13.0 mg/dL (7.0-18.0); CARBON DIOXIDE,CO2 26.5 mmol/L (21.0-32.0); CHLORIDE,CL 106.0 mmol/L (98-107); CREATININE 1.2 mg/dL (0.8-1.3); EST CRCL DRUG DOSING (CG) 87.04 mL/min; GLUCOSE RANDOM 97.0 mg/dL (74-106); POTASSIUM,K 4.2 mmol/L (3.5-5.1); PRO B-TYPE NATRIUR PEPT,BNPPRO 134.0 pg/mL (0-125); PROTEIN TOTAL,TP 7.1 g/dL (6.4-8.2); SODIUM,NA 141.0 mmol/L (136-148)
[2025-05-27 14:50] LABS: ESTIMATED GFR 73.0 mL/min (>60)
[2025-05-27] MEDS: Acetaminophen/HYDROcodone 325-5 MG Tab PO ONE (14:59)
== END 2025-05-27 15:21 | disposition home or self-care (01) ==
LOC: MW.ED 13:44
DX: M54.6 Pain in thoracic spine (principal); I10 Essential (primary) hypertension; E78.00 Pure hypercholesterolemia, unspecified; I25.2 Old myocardial infarction; K21.9 Gastro-esophageal reflux disease without esophagitis; Z79.899 Other long term (current) drug therapy; Z79.82 Long term (current) use of aspirin; Z88.5 Allergy status to narcotic agent; Z75.3 Unavailability and inaccessibility of health-care facilities
CPT/HCPCS: 36415; 71275; 74174; 80053; 83735; 83880; 84484; 85025; 85610; 93005; 99285; A9270; Q9967; 93010; 99284